=== PATIENT | female | born 1990 | race Caucasian/White ===

== ENCOUNTER 2017-11-16 18:09 | Emergency (ER) | payer MEDICAID ==
[~2017-11-16] VITALS: Ht 172.7 cm; Wt 64.5 kg
[2017-11-16 18:17] VITALS: Ht 172.7 cm; Wt 64.5 kg
[2017-11-16 19:42] VITALS: BP 110/70
== END 2017-11-16 19:45 | disposition home or self-care (01) ==
LOC: ED 18:09
DX: S39.012A Strain of muscle, fascia and tendon of lower back, initial encounter (principal); M54.40 Lumbago with sciatica, unspecified side; X58.XXXA Exposure to other specified factors, initial encounter; Y93.89 Activity, other specified; Y92.89 Other specified places as the place of occurrence of the external cause; Y99.8 Other external cause status
CPT/HCPCS: J1885